=== PATIENT | male | born 1975 | race Caucasian/White ===

== ENCOUNTER 2018-10-15 18:14 | Emergency (ER) | payer SELFPAY ==
[~2018-10-15] VITALS: Ht 180.3 cm; Wt 73.5 kg
--- NOTE | 2018-10-27 10:28 | NUR ---
SPOKE TO [facility] @ [facility] AT . INQUIRED REGARDING RX WRITTEN BY DR PAYAL SABILLON FOR PT ON DAY OF SERVICE 10/15/2018. RX SEEN BY RN AND CHG NURSE. RX OKAY'D VALID. 0.5MG PO TID X [address] SABILLON. PAPERS PUT IN TO BE SCAN FOR MEDICAL RECORDS.
== END 2018-10-15 20:20 | disposition left against medical advice (07) ==
LOC: FSED 18:14
DX: F25.9 Schizoaffective disorder, unspecified (principal)